=== PATIENT | male | born 1930 | race Hispanic/Latino ===

== ENCOUNTER 2017-08-20 05:55 | Emergency (ER) | payer MEDICARE ==
--- NOTE | 2017-08-20 06:18 | ED PDOC ---
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 Carlos is an 87 year old male with an unknown past medical history BIBA to [facility] [place] [place] as he was filed as a missing person and then found in [place], [place]. Patient states that he feels "well" and that he was driving to see his "lady friend" but he was late. He also reports that he hasn't eaten all day because he was worried about being late and forgot. According to EMS/Police, patient was filed as a missing person from [place], [place] earlier today and was found in [place], [place]. They report that patient has dementia and needs evaluation while patients family comes to pick him up. Patient denies any fever, chills, headache , chest pain, SOB, abdominal pain, N/V/D/C, pain with urination, rash, or any numbness/tingling/weakness of any extremity. PMD: Dr. Armijo in [place], [place] (Jacob Feliz) Past Medical History - Provider Review Nursing Documentation Reviewed: Yes - Travel History Have you recently traveled outside [place] w/in the past 3 mons?: No - Past History Past History: No Previous - Infectious Disease Hx of Infectious Diseases: None - Tetanus Immunization Tetanus Immunization: Unknown - Psychiatric Hx Substance Use: Yes Family/Social History - Physician Review Nursing Documentation Reviewed: Yes Family/Social History: Unknown Family HX Smoking Status: Former Smoker Hx Alcohol Use: Yes Frequency of alcohol use: Socially Hx Substance Use: Yes Allergies/Home Meds Allergies/Adverse Reactions: Allergies No Known Allergies Allergy (Verified 08/20/17 06:02) Home Medications: Home Meds Medication Instructions Recorded Confirmed Unobtainable 08/20/17 08/20/17 Review of Systems - Physician Review All systems were reviewed & negative as marked: Yes - Review of Systems Systems not reviewed;Unavailable: Dementia Constitutional: Normal. absent: Fevers Eyes: Normal. absent: Vision Changes ENT: Normal Respiratory: Normal. absent: SOB Cardiovascular: Normal. absent: Chest Pain Gastrointestinal: Normal. absent: Abdominal Pain, Constipation, Diarrhea, Nausea, Vomiting Genitourinary Male: Normal. absent: Dysuria Musculoskeletal: Normal. absent: Arthralgias, Myalgias Skin: Normal. absent: Rash Neurological: Normal. absent: Headache Endocrine: Normal Hemo/Lymphatic: Normal Psychiatric: Normal Physical Exam Vital Signs Reviewed: Yes Temperature: Afebrile Blood Pressure: Hypertensive Pulse: Regular Respiratory Rate: Normal Appearance: Positive for: Well-Appearing, Non-Toxic, Comfortable Pain Distress: None Mental Status: Positive for: Confused. No: Alert and Oriented X 3 Finger Stick Blood Glucose: 106 - Systems Exam Head: Present: Atraumatic, Normocephalic Pupils: Present: PERRL Extroacular Muscles: Present: EOMI Conjunctiva: Present: Normal Mouth: Present: Moist Mucous Membranes Neck: Present: Normal Range of Motion Respiratory/Chest: Present: Clear to Auscultation, Good Air Exchange. No: Respiratory Distress, Accessory Muscle Use Cardiovascular: Present: Regular Rate and Rhythm, Normal S1, S2. No: Murmurs Abdomen: Present: Normal Bowel Sounds. No: Tenderness, Distention, Peritoneal Signs Back: Present: Normal Inspection Upper Extremity: Present: Normal Inspection. No: Cyanosis, Edema Lower Extremity: Present: Normal Inspection. No: Edema Neurological: Present: GCS=15, CN II-XII Intact, Speech Normal Skin: Present: Warm, Dry, Normal Color. No: Rashes Psychiatric: Present: Alert, Normal Concentration, Other (Patient noted to have dementia). No: Oriented x 3 (Patient oriented to person and time but not to place), Normal Insight Vital Signs Temp Pulse Resp BP Pulse Ox 08/20/17 12:00 98 F 85 18 137/79 97 08/20/17 08:00 98 F 84 16 135/79 97 08/20/17 06:13 88 18 136/72 94 L 08/20/17 06:05 97.7 F 91 H 17 136/72 95 08/20/17 06:03 97.7 F 91 H 18 160/102 H 96 Medical Decision Making - Lab Interpretations I have reviewed the lab results: Yes Interpretation: All labs normal ED Course and Treatment: Pt seen and evaluated with medical physiologist. Aware and agree with HPI, clinical findings, plan, and management. (Miah Naylor) 08/20/17 06:36 Impression: 87 year old male with an unknown past medical history BIBA to [facility] [place] as he was filed as a missing person and then found in [place], [place]. Patient undergoing evaluation/observation until family can pick patient up. Plan: -Fingerstick Blood Sugar -Reassess and disposition Prior Visits: No previous visits to any [facility] ([facility]) Disposition/Present on Arrival - Present on Arrival Any Indicators Present on Arrival: No History of DVT/PE: No History of Uncontrolled Diabetes: No Urinary Catheter: No History of Decub. Ulcer: No History Surgical Site Infection Following: None - Disposition Have Diagnosis and Disposition been Completed?: Yes Disposition Time: 07:05 - Disposition Diagnosis: Dementia Disposition: HOME/ ROUTINE Condition: STABLE Discharge Instructions (ExitCare): Dementia (ED) Additional Instructions: return to er with worsening symptoms or concerns. Referrals: [facility] [Outside] - Follow up with primary [facility] [place] [Outside] - Follow up with primary [facility] [Outside] - Follow up with primary Zoraida Mejia MD [Staff Provider] - Follow up with primary Forms: [employer] (Lebanese)
--- NOTE | 2017-08-20 10:07 | ED PDOC ---
Physical Exam Vital Signs Reviewed: Yes Vital Signs Temp Pulse Resp BP Pulse Ox 08/20/17 06:13 88 18 136/72 94 L 08/20/17 06:05 97.7 F 91 H 17 136/72 95 08/20/17 06:03 97.7 F 91 H 18 160/102 H 96 Temperature: Afebrile Blood Pressure: Hypertensive Pulse: Regular Respiratory Rate: Normal Appearance: Positive for: Well-Appearing Pain Distress: None Mental Status: Positive for: Confused Finger Stick Blood Glucose: 106 Medical Decision Making ED Course and Treatment: 08/20/17 10:05 Patient currently in no acute distress and is now eating and drinking milk. Patient awaiting family to take him home. 08/20/17 11:49 Patient's family has arrived, pt in nad 08/20/17 16:14 - Scribe Statement The provider has reviewed the documentation as recorded by the Scribe Della Dave Provider Scribe Attestation: All medical record entries made by the Scribe were at my direction and personally dictated by me. I have reviewed the chart and agree that the record accurately reflects my personal performance of the history, physical exam, medical decision making, and the department course for this patient. I have also personally directed, reviewed, and agree with the discharge instructions and disposition. Disposition/Present on Arrival - Present on Arrival Any Indicators Present on Arrival: No History of DVT/PE: No History of Uncontrolled Diabetes: No Urinary Catheter: No History of Decub. Ulcer: No History Surgical Site Infection Following: None - Disposition Have Diagnosis and Disposition been Completed?: Yes Diagnosis: Dementia Disposition: HOME/ ROUTINE Disposition Time: 12:00 Condition: STABLE Discharge Instructions (ExitCare): Dementia (ED) Additional Instructions: return to er with worsening symptoms or concerns. Referrals: [facility] [Outside] - Follow up with primary [facility] [Outside] - Follow up with primary [facility] [Outside] - Follow up with primary Zoraida Mejia MD [Staff Provider] - Follow up with primary Forms: [employer] (Latvian)
[2017-08-20 12:15] VITALS: TEMP 98; O2SAT 97
[2017-08-20 12:16] VITALS: BP 137/79; PULSE 85; RESP 18
== END 2017-08-20 12:10 | disposition home or self-care (01) ==
LOC: ED 05:55
DX: F03.90 Unspecified dementia, unspecified severity, without behavioral disturbance, psychotic disturbance, mood disturbance, and anxiety (principal)